=== PATIENT | male | born 1995 | race Caucasian/White ===

== ENCOUNTER 2021-05-27 10:59 | Emergency (ER) | payer OTHER, SELFPAY ==
[2021-05-27 18:15] LABS: SARS-CoV-2 PCR by NAA Not Detected (NotDetected)
== END 2021-05-27 12:10 | disposition home or self-care (01) ==
LOC: CSHERS 10:59
DX: B34.9 Viral infection, unspecified (principal); Z20.822 Contact with and (suspected) exposure to COVID-19
CPT/HCPCS: 99284; U0003; U0005

== ENCOUNTER 2022-05-09 20:11 | Emergency (ER) | payer OTHER, SELFPAY ==
[2022-05-09] MEDS ORDERED: Ketorolac Tromethamine 30 MG/ML VIAL ONE (20:47)
[2022-05-09] MEDS ORDERED: Clindamycin 150 MG CAP ONE (20:47)
== END 2022-05-09 21:14 | disposition home or self-care (01) ==
LOC: CSHERS 20:11
DX: K02.9 Dental caries, unspecified (principal)
CPT/HCPCS: 96372; 99282; J1885